=== PATIENT | male | born 1955 | race Caucasian/White ===

== ENCOUNTER 2017-03-28 03:25 | Emergency (ER) | payer OTHER ==
[2017-03-28] MEDS: predniSONE 20 MG TABLET PO (04:15)
[2017-03-28] MEDS: diphenhydrAMINE HCL 25 MG CAPSULE PO (04:15)
== END 2017-03-28 04:45 | disposition home or self-care (01) ==
LOC: ER 03:25
DX: T78.49XA Other allergy, initial encounter (principal); I10 Essential (primary) hypertension; Z87.891 Personal history of nicotine dependence; X58.XXXA Exposure to other specified factors, initial encounter
CPT/HCPCS: 99283; J7512; Q0163